=== PATIENT | female | born 1975 | race Caucasian/White ===

== ENCOUNTER 2024-07-23 22:09 | Emergency (ER) | payer OTHER, SELFPAY ==
[2024-07-23 22:42] VITALS: BP 132/86; PULSE 88; RESP 18; TEMP 36.6; O2SAT 97
[2024-07-23 22:45] VITALS: RESP 18
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
[2024-07-23 23:31] VITALS: BP 132/65; PULSE 84; RESP 18; O2SAT 98
== END 2024-07-23 23:33 | disposition home or self-care (01) ==
LOC: ER 23:40
PROVIDERS: Emergency Provider Student in an Organized Health Care Education/Training Program; PCP Family Medicine
DX: S80.12XA Contusion of left lower leg, initial encounter (principal); S60.222A Contusion of left hand, initial encounter; V40.5XXA Car driver injured in collision with pedestrian or animal in traffic accident, initial encounter
CPT/HCPCS: 99283